=== PATIENT | male | born 1965 | race Caucasian/White ===

== ENCOUNTER 2021-04-16 07:16 | Emergency (ER) | payer OTHER, SELFPAY ==
[2021-04-16 07:21] VITALS: BP 147/88; PULSE 88; RESP 25; TEMP 36.8; O2SAT 99
--- NOTE | 2021-04-16 08:01 | ED.GENADULT ---
HPI - General Adult General Chief complaint: Anxiety Stated complaint: anxiety Time Seen by Provider: 04/16/21 07:29 Source: patient History of Present Illness HPI narrative: Patient is a 56 y/o male complaining of severe anxiety since earlier this morning. He state that he has history of anxiety. He took Vistaril, which did not help immediately. He is from [place] here visiting family. He is scheduled to have biopsy of a thyroid nodule in 5 days when he return to [place]. He has some post nasal drip. All these things are making him more anxious. He denies any chest pain or SOB. He states that he PCP called in Xanax, he is not able to get it filled until pharmacy opens later today. Related Data Allergies Allergy/AdvReac Type Severity Reaction Status Date / Time No Known Allergies Allergy Verified 04/16/21 07:33 Review of Systems Constitutional: Constitutional: Denies chills, Denies fever(s), Denies headache(s) and Denies weakness Eyes: Eyes: Denies blurry vision ENT: Denies headache(s), Denies neck pain and Reports post nasal drip Cardiovascular: Cardiovascular: Denies chest pain and Denies dyspnea Respiratory: Respiratory: Denies cough and Denies dyspnea Gastrointestinal: Gastrointestinal: Denies abdominal pain, Denies diarrhea, Denies nausea and Denies vomiting Genitourinary: Genitourinary: Denies hematuria and Denies dysuria Musculoskeletal: Musculoskeletal: Denies back pain and Denies neck pain Neurologic: Denies headache(s) and Denies weakness Psychiatric: Psychiatric: Reports anxiety Exam Const: General: no acute distress and well developed Orientation/consciousness: oriented to person, oriented to place, oriented to time and patient oriented x3 HENMT: Head: normocephalic Ears: external ears normal General nose exam: Normal external nose present Eyes: General: appearance normal, both eyes and all related structures Conjunctivae: conjunctivae normal Neck: Neck: normal visual inspection and full ROM Thyroid: other (no palpable nodule) Chest: Chest palpation & inspection: normal inspection of the chest and no tenderness Resp: Effort & Inspection: normal respiratory effort Auscultation: clear to auscultation bilaterally Cardio: Rate: regular rate Rhythm: regular rhythm GI: GI Palp: No abdominal tenderness and Yes Soft to palpation Skin: General skin exam: normal color and turgor normal Neuro: General: oriented to person, oriented to place, oriented to time and patient oriented x3 Cognition (Neuro): normal cognition Extrem: General: normal to inspection, full ROM and no pedal edema Psych: Appearance: grossly normal Mental Status: mental status grossly normal Affect: Anxious affect present Course Vital Signs Vital signs: Vital Signs Temperature 36.8 C 04/16/21 07:21 Pulse Rate 88 04/16/21 07:21 Respiratory Rate 25 H 04/16/21 07:21 Blood Pressure 147/88 H 04/16/21 07:21 Pulse Oximetry 99 04/16/21 07:21 Temperature 36.8 C 04/16/21 07:21 Pulse Rate 81 04/16/21 09:17 Respiratory Rate 20 04/16/21 09:17 Blood Pressure 124/73 04/16/21 09:17 Pulse Oximetry 94 04/16/21 09:17 Medical Decision Making Vital Signs Vital Signs: Vital Signs Temperature 36.8 C 04/16/21 07:21 Pulse Rate 88 04/16/21 07:21 Respiratory Rate 25 H 04/16/21 07:21 Blood Pressure 147/88 H 04/16/21 07:21 Pulse Oximetry 99 04/16/21 07:21 Temperature 36.8 C 04/16/21 07:21 Pulse Rate 81 04/16/21 09:17 Respiratory Rate 20 04/16/21 09:17 Blood Pressure 124/73 04/16/21 09:17 Pulse Oximetry 94 04/16/21 09:17 Discharge Plan Discharge Clinical Impression: Anxiety Patient Disposition: Home, Self-Care Condition: Stable Instructions: Anxiety (ED) Follow-up/Referrals: UNKNOWN,DOCTOR [Primary Care Provider] -
[2021-04-16] MEDS: ALPRAZolam (*CRX) 0.25 MG TABLET 0.5 MG PO (08:19)
[2021-04-16 09:17] VITALS: BP 124/73; PULSE 81; RESP 20; O2SAT 94
== END 2021-04-16 09:52 | disposition home or self-care (01) ==
PROVIDERS: Emergency Provider Emergency Medicine
DX: F41.9 Anxiety disorder, unspecified (principal); E04.1 Nontoxic single thyroid nodule
CPT/HCPCS: 99283; A9270